=== PATIENT | female | born 2000 | race Hispanic/Latino ===

== ENCOUNTER 2024-04-26 18:14 | Day surgery (SDC) | payer OTHER ==
[2024-04-26 19:28] VITALS: BMI 24.6
[2024-04-26 20:38] LABS: Fetal Membranes Rupture No Membranes Rupture (No Rupture)
[2024-04-26] MEDS ORDERED: hydrALAZINE 20 MG/ML VIAL SLOW IVP PRN (20:45)
== END 2024-04-26 21:51 | disposition home or self-care (01) ==
LOC: CSHLD/OP 18:14
PROVIDERS: ATTEND Family Medicine
DX: O47.03 False labor before 37 completed weeks of gestation, third trimester (principal); Z03.71 Encounter for suspected problem with amniotic cavity and membrane ruled out; Z3A.35 35 weeks gestation of pregnancy; Z91.012 Allergy to eggs; Z79.899 Other long term (current) drug therapy
CPT/HCPCS: 84112; 99282

== ENCOUNTER 2024-05-23 06:11 | Inpatient (IN) | payer MEDICAID, OTHER ==
[2024-05-23] MEDS ORDERED: fentaNYL 50 mcg/mL 1 mL Vial SLOW IVP PRN (07:07)
[2024-05-23] MEDS ORDERED: HYDROcodone/Acetaminophen 5/325 mg Tablet PO PRN ×2 (07:07→21:47)
[2024-05-23] MEDS ORDERED: Acetaminophen 500 MG TAB PO PRN (07:07)
[2024-05-23] MEDS ORDERED: Ondansetron PF 4 MG/2 ML Vial IVP PRN ×2 (07:07→08:36)
[2024-05-23] MEDS ORDERED: Promethazine HCl 25 MG/ML VIAL IM PRN ×2 (07:07→08:36)
[2024-05-23] MEDS ORDERED: Ibuprofen 800 MG TAB PO PRN (07:07)
[2024-05-23] MEDS ORDERED: Tranexamic Acid 1,000 MG/10 ML VIAL IVP PRN (07:07)
[2024-05-23] MEDS ORDERED: Carboprost 250 MCG/ML AMP IM PRN (07:07)
[2024-05-23] MEDS ORDERED: Oxytocin 30 units/NS 500 ML 500 ML IV SCH ×3 (07:07)
[2024-05-23] MEDS ORDERED: Lidocaine 1% (PF) 30 ML VIAL SC PRN (07:07)
[2024-05-23] MEDS ORDERED: Misoprostol 200 MCG TAB PR PRN (07:07)
[2024-05-23] MEDS ORDERED: Diphenoxylate HCl/Atropine Tablet PO PRN (07:07)
[2024-05-23] MEDS ORDERED: hydrALAZINE 20 MG/ML VIAL SLOW IVP PRN ×2 (07:07→21:47)
[2024-05-23] MEDS: Lactated Ringer's 1,000 ML IV SCH (07:30)
[2024-05-23] MEDS ORDERED: ePHEDrine Sulfate 50 MG/10 ML VIAL ONE (08:00)
[2024-05-23] MEDS ORDERED: Bupivacaine 0.25% HCL 30 ML VIAL ONE (08:00)
[2024-05-23 08:03] VITALS: BMI 25.8
[2024-05-23 08:29] LABS: Syphilis Antibody Nonreactive (Nonreactive); Syphilis Antibody Index 0.04 S/CO (<1.00 Non-Reactive)
[2024-05-23 08:32] LABS: HBsAg Index 0.26 S/CO (0-0.99); HIV (1/2) Antibody/Antigen Non-Reactive (NonReactive); HIV 1/2 INDEX 0.07 S/CO (<1.00); Hep B Surf Ag - L&D Non-Reactive S/CO (NonReactive)
[2024-05-23] MEDS ORDERED: diphenhydrAMINE 50 MG/ML VIAL IVP PRN (08:36)
[2024-05-23] MEDS ORDERED: Acetaminophen 325 MG TAB PO PRN (08:36)
[2024-05-23] MEDS ORDERED: Naloxone HCl 0.4 mg/ml Vial IVP PRN ×2 (08:36)
[2024-05-23] MEDS ORDERED: Lactated Ringer's 500 ML IV PRN (08:36)
[2024-05-23] MEDS ORDERED: Moisturizing Cream (Eucerin) 113 GM JAR TOP PRN (08:36)
[2024-05-23 08:40] LABS: Hematocrit 35.6 % (34.9-44.5); Hemoglobin 11.2 g/dL (12.0-15.5); Mean Corpuscular HGB CONC 31.5 g/dL (32.0-36.0); Mean Corpuscular Hemoglobin 25.2 pg (27.0-33.0); Mean Corpuscular Volume 80.2 fL (81.6-98.3); RBC Distribution Width 14.6 % (11.5-14.5); Red Blood Cell (RBC) Count 4.44 10x6/uL (3.90-5.03); White Blood Cell (WBC) Count 7.36 10x3/uL (3.5-10.5)
[2024-05-23] MEDS ORDERED: Communication Order-Pharmacy FS SCH (08:45)
[2024-05-23 08:49] LABS: Platelet Count 145 10x3/uL (150-450)
[2024-05-23] MEDS: fentaNYL 2 mcg/Ropivacaine 0.2% Epidural 100 ML CADD EPIDURAL SCH (09:19)
[2024-05-23] MEDS: ePHEDrine Sulfate 50 MG/10 ML VIAL SLOW IVP PRN (10:00)
[2024-05-23] MEDS: Dexmedetomidine 200 MCG/2 ML VIAL ONE (13:42)
[2024-05-23] MEDS: Sterile Water 10 ML ONE (13:42)
[2024-05-23] MEDS: Methylergonovine 0.2 MG/ML VIAL IM PRN (18:24)
[2024-05-23] MEDS: Phytonadione Neonatal 1 MG/0.5 ML AMP ONE (21:03)
[2024-05-23] MEDS: Erythromycin Base 0.5% Oint 1 GM TUBE ONE (21:03)
[2024-05-23] MEDS ORDERED: Bisacodyl 10 MG SUPP PR PRN (21:47)
[2024-05-23] MEDS ORDERED: Benzocaine-Menthol 82.5 ML CAN TOP PRN (21:47)
[2024-05-23] MEDS ORDERED: Milk Of Magnesia 30 ML UDCUP PO PRN (21:47)
[2024-05-23] MEDS ORDERED: diphenhydrAMINE 25 MG CAP PO PRN (21:47)
[2024-05-23] MEDS ORDERED: Lanolin Ointment 7 GM TUBE TOP PRN (21:47)
[2024-05-23] MEDS: Boostrix 0.5 ML (Tdap) VIAL (>/=7 yrs of age) IM ONE (21:57)
[2024-05-23] MEDS: Ibuprofen 800 MG TAB PO SCH (22:43)
[2024-05-24] MEDS: Ferrous Sulfate 325 MG TAB PO SCH (07:20)
[2024-05-24] MEDS: Docusate 100 MG CAP PO SCH (08:52)
[2024-05-24] MEDS: Prenatal Vitamin 1 TAB PO SCH (08:52)
[2024-05-24 15:52] VITALS: BP 110/72; TEMP 98.5
== END 2024-05-24 18:30 | disposition home or self-care (01) | DRG 807 ==
LOC: CSHLD 06:11 → CSHPP 20:20
PROVIDERS: ADMIT Family Medicine; ATTEND Family Medicine
PROC: 10E0XZZ Delivery of Products of Conception, External Approach (ICD-10-PCS; principal; 2024-05-23)
PROC: 0KQM0ZZ Repair Perineum Muscle, Open Approach (ICD-10-PCS; 2024-05-23)
PROC: 10907ZC Drainage of Amniotic Fluid, Therapeutic from Products of Conception, Via Natural or Artificial Opening (ICD-10-PCS; 2024-05-23)
DX: O76 Abnormality in fetal heart rate and rhythm complicating labor and delivery (principal); Z37.0 Single live birth; Z3A.39 39 weeks gestation of pregnancy; O70.1 Second degree perineal laceration during delivery
CPT/HCPCS: 36416; 51702; 85027; 86780; 86850; 86900; 86901; 87340; 87389; J0665; J2210; J7120